=== PATIENT | female | born 1965 | race Caucasian/White ===

== ENCOUNTER → 2016-09-10 | Outpatient (REF) | payer OTHER ==
[~2016-09-10] MED LIST: /LOR25TA PO; ASPI81TA85 PO; CARV12.5 PO; COLA100C PO; CORE25TA PO; GABA100C PO; HYDR5TAB23 PO; MULTCAP PO; OSEL75CA PO; OXYC-208 PO; OXYC-299 PO; OXYC30TA4 PO; PERC5TAB6 PO; PRED10TA2 PO; TRAM100T13 PO; ULTR50TA PO; ZANA2CAP PO; [UNRECOGNIZED DRUG - OTHER] PO; alleve PO
[2016-09-10 13:46] LABS: MEAN CORPUSCULAR HEMOGLOBIN 31.4 pg (27.0-33.0); MEAN CORPUSCULAR HGB CONC 32.9 g/dl (32.0-36.5); MEAN CORPUSCULAR VOLUME 95.6 fl (80.0-96.0); RED CELL DISTRIBUTION WIDTH 13.1 % (11.5-14.5); WHITE BLOOD COUNT 5.7 K/mm3 (4.0-10.0)
[2016-09-10 14:11] LABS: ALBUMIN 4.3 GM/DL (3.2-5.2); ALBUMIN/GLOBULIN RATIO 1.54 (1.00-1.93); ALKALINE PHOSPHATASE 79 U/L (45-117); ALT/SGPT 46 U/L (12-78); ANION GAP 12 MEQ/L (8-16); AST/SGOT 15 U/L (15-37); BILIRUBIN,TOTAL 0.3 MG/DL (0.2-1.0); BLOOD UREA NITROGEN 19 MG/DL (7-18); CALCIUM LEVEL 10.4 MG/DL (8.5-10.1); CARBON DIOXIDE LEVEL 24 MEQ/L (21-32); CHLORIDE LEVEL 108 MEQ/L (98-107); CHOLESTEROL LEVEL 267 MG/DL (<200); CREATININE FOR GFR 0.82 MG/DL (0.55-1.02); FREE T4 0.66 NG/DL (0.76-1.46); GLOMERULAR FILTRATION RATE > 60.0 (>51); GLUCOSE, FASTING 101 MG/DL (70-105); POTASSIUM SERUM 4.4 MEQ/L (3.5-5.1); SODIUM LEVEL 144 MEQ/L (136-145); TOTAL PROTEIN 7.1 GM/DL (6.4-8.2); TRIGLYCERIDES LEVEL 234 MG/DL (<150)
== END ==
LOC: M LAB REF 12:36
PROVIDERS: ATTEND Advanced Practice Midwife
DX: Z01.419 Encounter for gynecological examination (general) (routine) without abnormal findings (principal)

== ENCOUNTER → 2017-07-29 | Outpatient (REF) | payer OTHER ==
[~2017-07-29] MED LIST changes: -COLA100C PO; +COLA100C5 PO; +OXYC-141 PO; -OXYC-299 PO; +PERC5TAB12 PO; -PERC5TAB6 PO
[2017-07-29 16:09] LABS: INR 0.85
== END ==
LOC: M LABDRAW1 14:01
PROVIDERS: ATTEND Physical Medicine & Rehabilitation
DX: R79.1 Abnormal coagulation profile (principal); Z79.899 Other long term (current) drug therapy

== ENCOUNTER → 2017-08-14 | Outpatient (REF) | payer OTHER | LOC: M LABDRAW1 11:47 | PROVIDERS: ATTEND Physical Medicine & Rehabilitation | DX: Z01.818 Encounter for other preprocedural examination (principal) ==